=== PATIENT | female | born 2000 | race Hispanic/Latino ===

== ENCOUNTER 2025-03-19 05:56 | Observation (INO) | payer OTHER ==
[~2025-03-19] VITALS: Ht 162.6 cm; Wt 104.5 kg
[2025-03-19] MEDS: ONDANSETRON 4MG/2ML VIAL IV ONE (08:09)
[2025-03-19] MEDS: PANTOPRAZOLE 40MG VIAL IV ONE (08:09)
[2025-03-19 08:20] LABS: BASO # 0.0 10^3/uL (0.0-0.2); BASO % 0.1 % (0.0-1.0); EOS # 0.2 10^3/uL (0.0-0.5); EOS % 2.1 % (0.0-3.0); LYMPH # 1.1 10^3/uL (1.5-5.0); LYMPH % 10.6 % (24.0-44.0); MONO # 0.4 10^3/uL (0.0-0.8); MONO % 3.9 % (2.0-8.0); NEUTROPHILS # 8.9 10^3/uL (1.5-8.5); NEUTROPHILS % 83.1 % (36.0-66.0); PLATELET COUNT, AUTOMATED 433 10^3/uL (150-450)
[2025-03-19] MEDS ORDERED: ISOVUE-370 76% 100 ML VIAL As Ordered ONE (08:32)
[2025-03-19 08:44] LABS: ALT/SGPT 28 U/L (7.0-40); AST/SGOT 19 U/L (<34); CALCIUM LEVEL 8.5 MG/DL (8.5-10.1); CARBON DIOXIDE LEVEL 24 MMOL/L (20-31); CHLORIDE LEVEL 105 MMOL/L (98-107); CREATININE FOR GFR 0.64 MG/DL (0.55-1.30); GLOMERULAR FILTRATION RATE > 90.0 (>60); POTASSIUM SERUM 4.0 MMOL/L (3.5-5.1); SODIUM LEVEL 141 MMOL/L (136-145)
[2025-03-19 10:57] LABS: KETONE, URINE AUTO RFX 2+ mg/dL (NEGATIVE); LEUKOCYTE ESTERASE UR AUTO RFX NEGATIVE (NEGATIVE); MUCUS, URINE RFX SMALL (NEGATIVE); NITRITE, URINE AUTO RFX NEGATIVE (NEGATIVE); RBC, URINE AUTO RFX 9 /HPF (0-3); SQUAM EPITHELIAL CELL UR AURFX 1 /HPF (0-6); WBC, URINE AUTO RFX 3 /HPF (0-3)
[2025-03-19] MEDS: MORPHINE 2 MG/ML 1 ML VIAL IV PRN (11:42)
[2025-03-19] MEDS ORDERED: TIRZ5PEN SQ (12:08)
[2025-03-19] MEDS ORDERED: HOME MED LIST COMPLETE! XX SCH (12:10)
[2025-03-19] MEDS ORDERED: DICYCLOMINE 10 MG CAP PO PRN (12:40)
[2025-03-19] MEDS ORDERED: ACETAMINOPHEN 325 MG TAB PO PRN (12:40)
[2025-03-19] MEDS: D5W/0.9% SODIUM CHLORIDE 1,000 ML IV SCH (13:32)
[2025-03-19] MEDS: AZITHROMYCIN 250 MG TABLET PO ONE (13:32)
[2025-03-19 14:38] VITALS: BP 121/73; TEMP 97.1; O2SAT 97
[2025-03-19] MEDS: ONDANSETRON 4MG/2ML VIAL IV PRN (16:09)
[2025-03-19 19:48] VITALS: BP 115/63; TEMP 98.6; O2SAT 98
[2025-03-19] MEDS: ENOXAPARIN 40 MG/0.4 ML SYRINGE (J1650 PER 10MG) SC SCH (20:17)
[2025-03-20] MEDS ORDERED: DICYCLOMINE 10 MG CAP PO SCH
[2025-03-20 04:22] VITALS: BP 97/55; TEMP 98.7; O2SAT 97
[2025-03-20 05:26] LABS: BASO # 0.0 10^3/uL (0.0-0.2); BASO % 0.1 % (0.0-1.0); EOS # 0.4 10^3/uL (0.0-0.5); EOS % 5.5 % (0.0-3.0); LYMPH # 2.0 10^3/uL (1.5-5.0); LYMPH % 28.2 % (24.0-44.0); MONO # 0.4 10^3/uL (0.0-0.8); MONO % 5.8 % (2.0-8.0); NEUTROPHILS # 4.3 10^3/uL (1.5-8.5); NEUTROPHILS % 60.1 % (36.0-66.0)
[2025-03-20 05:32] LABS: PLATELET COUNT, AUTOMATED 330 10^3/uL (150-450)
[2025-03-20 05:59] LABS: ALT/SGPT 23 U/L (7.0-40); AST/SGOT 12 U/L (<34); CALCIUM LEVEL 7.4 MG/DL (8.5-10.1); CARBON DIOXIDE LEVEL 25 MMOL/L (20-31); CHLORIDE LEVEL 109 MMOL/L (98-107); CREATININE FOR GFR 0.72 MG/DL (0.55-1.30); GLOMERULAR FILTRATION RATE > 90.0 (>60); MAGNESIUM LEVEL 1.8 MG/DL (1.8-2.4); POTASSIUM SERUM 3.4 MMOL/L (3.5-5.1); SODIUM LEVEL 143 MMOL/L (136-145)
[2025-03-20] MEDS ORDERED: ONDA-83 PO (07:44)
[2025-03-20] MEDS ORDERED: AZIT-12 PO (07:44)
[2025-03-20] MEDS: PANTOPRAZOLE 40MG VIAL IV SCH (07:49)
[2025-03-20] MEDS: AZITHROMYCIN 250 MG TABLET PO SCH (07:50)
[2025-03-20] MEDS: POTASSIUM CHLORIDE 10MEQ SR TABLET PO ONE (07:51)
[2025-03-20 10:27] VITALS: BP 119/62
[2025-03-20] MEDS ORDERED: DICY1CAP8 PO (11:10)
== END 2025-03-20 12:08 | disposition home or self-care (01) ==
LOC: M ED 05:56 → M ED INP 05:57 → M MS4PR 14:38
PROVIDERS: ADMIT Internal Medicine; ATTEND Internal Medicine
DX: R19.7 Diarrhea, unspecified (principal); R11.2 Nausea with vomiting, unspecified; A04.0 Enteropathogenic Escherichia coli infection; E87.6 Hypokalemia; B34.1 Enterovirus infection, unspecified; B34.8 Other viral infections of unspecified site; E66.9 Obesity, unspecified; R10.10 Upper abdominal pain, unspecified; J30.1 Allergic rhinitis due to pollen; Z79.899 Other long term (current) drug therapy; Z91.018 Allergy to other foods; Z88.8 Allergy status to other drugs, medicaments and biological substances
CPT/HCPCS: 36415; 71046; 74177; 76705; 80047; 80048; 80053; 80076; 81001; 83605; 83690; 83735; 84145; 85025; 87486; 87507; 87581; 87633; 87798; 93005; 93041; 96361; 96372; 96374; 96375; 96376; 99285; J1650; J2405; J2470; J2550; Q9967